=== PATIENT | male | born 1980 | race Caucasian/White ===

== ENCOUNTER 2017-03-27 10:25 | Inpatient (IN) | payer BC ==
[~2017-03-27] VITALS: Ht 167.6 cm; Wt 95.4 kg
[2017-03-27] MEDS ORDERED: NITROGLYCERIN 2% 1 GM OINT PKT TD STA (10:40)
[2017-03-27] MEDS ORDERED: ASPIRIN 81 MG TAB PO STA (10:40)
[2017-03-27] MEDS ORDERED: NITROGLYCERIN (SL) 0.4 MG TAB SL PRN ×2 (11:00→22:30)
[2017-03-27 11:11] LABS: BASOPHIL # 0.1 10^3/ul (0.0-0.1); BASOPHILS % 0.5 % (0.0-2.0); EOSINOPHILS # 0.1 10^3/ul (0.0-0.5); EOSINOPHILS % 1.4 % (0.0-7.0); HEMATOCRIT 46.7 % (42.0-52.0); HEMOGLOBIN 16.7 g/dl (14.0-18.0); LYMPHOCYTES % 32.3 % (15.0-51.0); MEAN CORPUSCULAR HEMOGLOBIN 30.7 pg (29.0-33.0); MEAN CORPUSCULAR HGB CONC 35.8 g/dl (32.0-37.0); MEAN CORPUSCULAR VOLUME 85.8 fl (82.0-101.0); MEAN PLATELET VOLUME 11.1 fl (7.4-10.4); MONOCYTE # 0.5 10^3/ul (0.3-0.9); MONOCYTES % 5.7 % (0.0-11.0); NEUTROPHIL # 5.4 10^3/ul (1.6-7.5); NEUTROPHILS % 59.6 % (39.0-77.0); PLATELET COUNT 267 10^3/UL (140-415); RED BLOOD COUNT 5.44 10^6/ul (4.70-6.10); RED CELL DISTRIBUTION WIDTH 12.4 % (11.5-14.5); WHITE BLOOD COUNT 9.1 10^3/ul (4.8-10.8)
[2017-03-27 11:29] LABS: INR 0.91; PARTIAL THROMBOPLASTIN TIME 26.7 Sec (25.0-35.0); PROTIME 12.2 Sec (12.2-14.2)
--- NOTE | 2017-03-27 11:29 | RADRPT ---
PROCEDURE: XR Chest. CLINICAL INDICATION: Chest Pain. TECHNIQUE: Single frontal view of the chest was obtained COMPARISON: None FINDINGS: The heart and mediastinum are within normal limits for patient size. The lungs are clear. There is no pleural effusion or pneumothorax. There is no evidence of significant pulmonary vascular congestion. The osseous structures, as visualized, are unremarkable. IMPRESSION: No evidence of acute cardiopulmonary process. RPTAT: PP Physician Linus Date Time Electronically viewed and signed by Physician Linus on 03/27/2017 11:28 PEPE/
[2017-03-27] MEDS ORDERED: ACETAMINOPHEN 325 MG TAB PO PRN ×2 (11:30→22:30)
[2017-03-27] MEDS ORDERED: ONDANSETRON 4 MG INJ IV PRN (11:30)
[2017-03-27 11:31] LABS: ANION GAP 20 (8-16); BLOOD UREA NITROGEN 18 mg/dl (7-20); CALCIUM 9.9 mg/dl (8.4-10.2); CARBON DIOXIDE 26 mmol/L (21-31); CHLORIDE 104 mmol/L (97-110); GLUCOSE 125 mg/dl (70-220); POTASSIUM 4.1 mmol/L (3.5-5.1); SODIUM 146 mmol/L (135-144)
[2017-03-27 11:57] LABS: TROPONIN-I < 0.012 ng/ml (0.00-0.12)
--- NOTE | 2017-03-27 12:36 | ERA ---
ER Documentation Chief Complaint Date/Time DATE: 03/27/17 TIME: 12:33 Chief Complaint 8/10 cp x yesterday HPI Patient is a 36-year-old male with hypertension who presents with chest pain and shortness of breath. The patient was sent by Dr. Marroquin his primary doctor for admission. The patient said that 2-3 weeks ago he started feeling palpitations that were coming and going. Over the past few days he has felt left-sided chest pressure. It was much worse last night and this morning. His hands were trembling. He had an EKG done yesterday done by Dr. Marroquin which was concerning for ischemia. Upon review of old medical records this is the patient's first visit to the emergency department. ROS All systems reviewed and are negative except as per history of present illness. Medications Home Meds No Active Prescriptions or Reported Meds Allergies Allergies: Coded Allergies: No Known Allergy (Unverified , 03/27/17) PMhx/Soc Medical and Surgical Hx: pt denies Medical Hx, pt denies Surgical Hx Hx Alcohol Use: Yes (SOCIALLY ONCE/MONTH) Hx Substance Use: No Hx Tobacco Use: Yes (15 CIGARETTES/DAY) Smoking Status: Current every day smoker FmHx Family History: No coronary disease Physical Exam Vitals Vital Signs Date Time Temp Pulse Resp B/P Pulse Ox O2 Delivery O2 Flow Rate FiO2 03/27/17 10:40 98.2 88 18 116/73 98 Room Air 03/27/17 10:27 98.2 98 18 134/77 98 Physical Exam Const: No acute distress Head: Atraumatic Eyes: Normal Conjunctiva ENT: Normal External Ears, Nose and Mouth. Neck: Full range of motion..~ No meningismus. Resp: Clear to auscultation bilaterally Cardio: Regular rate and rhythm, no murmurs Abd: Soft, non tender, non distended. Normal bowel sounds Skin: No petechiae or rashes Back: No midline or flank tenderness Ext: No cyanosis, or edema Neur: Awake and alert Psych: Normal Mood and Affect Result Diagram: 03/27/17 1100 03/27/17 1100 Results 24 hrs Laboratory Tests Test 03/27/17 11:00 White Blood Count 9.110^3/ul Red Blood Count 5.4410^6/ul Hemoglobin 16.7g/dl Hematocrit 46.7% Mean Corpuscular Volume 85.8fl Mean Corpuscular Hemoglobin 30.7pg Mean Corpuscular Hemoglobin Concent 35.8g/dl Red Cell Distribution Width 12.4% Platelet Count 20405^3/UL Mean Platelet Volume 11.1fl Neutrophils % 59.6% Lymphocytes % 32.3% Monocytes % 5.7% Eosinophils % 1.4% Basophils % 0.5% Nucleated Red Blood Cells % 0.0/100WBC Neutrophils # 5.410^3/ul Lymphocytes # 3.010^3/ul Monocytes # 0.510^3/ul Eosinophils # 0.110^3/ul Basophils # 0.110^3/ul Nucleated Red Blood Cells # 0.010^3/ul Prothrombin Time 12.2Sec Prothrombin Time Ratio 1.0 INR International Normalized Ratio 0.91 Activated Partial Thromboplast Time 26.7Sec Sodium Level 146mmol/L Potassium Level 4.1mmol/L Chloride Level 104mmol/L Carbon Dioxide Level 26mmol/L Anion Gap 20 Blood Urea Nitrogen 18mg/dl Creatinine 0.90mg/dl Glucose Level 125mg/dl Calcium Level 9.9mg/dl Troponin I < 0.012ng/ml Current Medications Medications (Trade) Dose Ordered Sig/Feli Route PRN Reason Start Time Stop Time Status Last Admin Dose Admin Aspirin (Aspirin) 162 mg ONCE STAT PO 03/27/17 10:40 03/27/17 10:42 DC 03/27/17 11:07 Nitroglycerin (Nitroglycerin 2% Oint) 1 inch ONCE STAT TD 03/27/17 10:40 03/27/17 10:42 DC 03/27/17 11:06 Nitroglycerin (Nitroglycerin (Sl Tab) 0.4 Mg) 1 tab Q5M UP TO 3 DOSES PRN SL CHEST PAIN 03/27/17 11:00 03/27/17 11:07 Ondansetron HCl (Zofran Inj) 4 mg ER BRIDGE PRN IV NAUSEA AND/OR VOMITING 03/27/17 11:30 03/28/17 11:29 Acetaminophen (Tylenol Tab) 650 mg ER BRIDGE PRN PO MILD PAIN/FEVER 03/27/17 11:30 03/28/17 11:29 03/27/17 11:56 Procedures/MDM EKG #1 read by me: Rate/Rhythm: Regular rate and rhythm at a rate of 97 Intervals: Normal Impression: No evidence of ischemia or arrhythmia EKG #2 read by me: Rate/Rhythm: Regular rate and rhythm at a rate of 87 Intervals: Normal Impression: No evidence of ischemia or arrhythmia Chest x-ray negative per radiology. Smoking Cessation Therapy: Pt. was lectured for greater than 3 minutes on the health risks of continued smoking and the benefits of cessation. Patient is a 36-year-old male who smokes who presents with chest pain. I am concerned about possible acute coronary syndrome given his smoking history and the symptoms he describes. I doubt pneumonia, pneumothorax, pulmonary embolism , or aortic dissection. The patient will be admitted to his primary doctor Dr. Marroquin who knows him well and sent him to the ER for admission. The patient will be admitted to a telemetry bed. He was given aspirin and nitroglycerin. Departure Diagnosis: Primary Impression: Chest pain Qualified Code: R07.9 - Chest pain, unspecified type Condition: AMIE Izquierdo MD Mar 27, 2017 12:36
[2017-03-27 16:24] LABS: CREATINE KINASE 52 IU/L (23-200)
[2017-03-27 16:38] LABS: CK-MB < 0.22 ng/ml (0.0-2.4); TROPONIN-I < 0.012 ng/ml (0.00-0.12)
[2017-03-27 17:00] VITALS: TEMP 98.4
[2017-03-27 17:50] VITALS: Ht 167.6 cm; Wt 95.4 kg
[2017-03-27 17:51] VITALS: BP 118/64; PULSE 62
[2017-03-27 20:28] VITALS: BP 109/56; PULSE 70; RESP 16
[2017-03-27 21:15] VITALS: PULSE 75
[2017-03-27 21:52] VITALS: BP 110/71; RESP 17
[2017-03-27] MEDS ORDERED: morphine 2 MG INJ IV PRN (22:30)
[2017-03-27] MEDS ORDERED: DOCUSATE SODIUM 100 MG CAP PO PRN (22:30)
[2017-03-27] MEDS ORDERED: BISACODYL (EC) 5 MG TAB PO PRN (22:30)
[2017-03-27] MEDS ORDERED: NACL 0.9% 3 ML SYG IV SCH (22:30)
--- NOTE | 2017-03-27 22:33 | HP ---
Date/Time of Note Date/Time of Note DATE: 03/27/17 TIME: 22:28 Assessment/Plan VTE Prophylaxis VTE Prophylaxis Intervention: heparin Lines/Catheters IV Catheter Type (from Nrsg): Saline Lock Assessment/Plan Chief Complaint/Hosp Course This is a 36-year-old male being admitted to the telemetry floor for: #1 chest pain: Rule out ACS versus anxiety. Patient is an obese male and has been a smoker for approximately 30 years. He does live a sedentary lifestyle. At the current time we will continue to trend cardiac troponins first 2 sets are negative. EKG was normal sinus rhythm as per the ED physician documentation. We will order echocardiogram in the a.m. Will also obtain a cardiology consult. Patient also reports stress in his life over the last month or so. This likely could be a component as well however we will rule out cardiac causes prior to that. X-ray of the chest was within normal values. #2 obesity: Patient was educated on weight loss. Will also obtain hemoglobin A1c and lipid panel as well as a TSH level. Patient also reports that he does feel tired throughout the day and he reports snoring. He may have underlying sleep apnea. Likely will need outpatient sleep study. #3 DVT and GI prophylaxis: Heparin subq, Protonix Further treatment strategy will be implemented as per the clinical course Of Note, The patient was admitted under Dr. Marroquin however as per the patient 's nurse, Dr. Marroquin wanted the patient transferred to the hospitalist service. I assumed care at around 10:31pm on 03/27/17. I attempted twice to contact Dr. Marroquin to clarify the transfer of care, but was unable to reach him through the answering service. Problems: HPI/ROS Admit Date/Time Admit Date/Time Mar 27, 2017 at 11:17 Hx of Present Illness chief complaint: chest pain This is a 36-year-old male with hypertension who presents with chest pain and shortness of breath. Follow was obtained by ED physician documentation. The patient was sent by Dr. Marroquin his primary doctor for admission. The patient said that 2-3 weeks ago he started feeling palpitations that were coming and going. Over the past few days he has felt left-sided chest pressure. It was much worse last night and this morning. His hands were trembling. He had an EKG done yesterday done by Dr. Marroquin which was concerning for ischemia. Upon my examination, patient was lying in bed in no acute distress. He did state that he has this pressure-like sensation on the left side of his chest which has been there since coming into the hospital. He denies any radiation of the pressure. He does report that he has been dealing with a lot of stress at work over the past month or so. Denies any diaphoresis or pleuritic pain. Of Note, The patient was admitted under Dr. Marroquin however as per the patient 's nurse, Dr. Marroquin wanted the patient transferred to the hospitalist service. I assumed care at around 10:31pm on 03/27/17. I attempted twice to contact Dr. Marroquin to clarify the transfer of care, but was unable to reach him through the answering service. ROS Const: As per HPI Eyes : No pain discharge or redness or change in visual acuity ENT: No pain, sore throat, congestion, congestion, dysphagia or discharge, patient does report snoring. Respiratory: As per HPI Cardiovascular: As per HPI GI : no change in appetite, abdominal pain, nausea, vomiting, diarrhea, constipation, or change in the color his stool Genitourinary: No dysuria, hematuria, flank pain , discharge or CVA tenderness Musculoskeletal: No joint pain, back pain, neck pain, restricted range of motion in neck or joints Skin: No rash, bruising or hives Neuro: No headache, dizziness, syncope, seizure, focal weakness Endocrine: No polyuria, polydipsia, temperature intolerance Psych: No hallucination, depression, anxiety or suicidal ideation PMH/Family/Social Past Medical History Medical History: no pertinent history Past Surgical History Past Surgical Hx: cholecystectomy Family History Significant Family History: no pertinent family hx Social History Alcohol Use: rarely (Social drinker) Smoking Status: Current every day smoker (1 pack per day 20 years) Exam/Review of Systems Vital Signs Vitals Vital Signs Date Time Temp Pulse Resp B/P Pulse Ox O2 Delivery O2 Flow Rate FiO2 03/27/17 21:52 98.0 75 17 110/71 97 03/27/17 20:28 Room Air Exam Exam General: Patient is a well-developed well-nourished male lying in bed in no acute distress. HEENT: Atraumatic, normocephalic. The pupils are equal, round and reactive. Extraocular motor are intact, Neck: Supple with full range of motion. No rigidity or meningismus, large neck Chest: Nontender Lungs: Clear to auscultation bilaterally no crackles rales or wheezing Heart: Normal S1-S2, Regular rhythm and rate. No overt murmurs appreciated on auscultation Abdomen: Soft , nontender, nondistended , bowel sounds are present. No guarding no rebound tenderness , No masses or organomegaly. No costovertebral temporal angle mass Extremities: Normal to inspection, no edema no cyanosis Neurologic: Normal mental status, speech normal, cranial nerves II through XII are intact, motor and sensory are intact, no focal weakness Additional Comments PROCEDURE: XR Chest. CLINICAL INDICATION: Chest Pain. TECHNIQUE: Single frontal view of the chest was obtained COMPARISON: None FINDINGS: The heart and mediastinum are within normal limits for patient size. The lungs are clear. There is no pleural effusion or pneumothorax. There is no evidence of significant pulmonary vascular congestion. The osseous structures, as visualized, are unremarkable. IMPRESSION: No evidence of acute cardiopulmonary process. RPTAT: PP Physician Linus Date Time Electronically viewed and signed by Physician Linus on 03/27/2017 11: 28 EKG #1 Rate/Rhythm: Regular rate and rhythm at a rate of 97 Intervals: Normal Impression: No evidence of ischemia or arrhythmia EKG #2 Rate/Rhythm: Regular rate and rhythm at a rate of 87 Intervals: Normal Impression: No evidence of ischemia or arrhythmia as per ed physician documentation Labs Result Diagram: 03/27/17 1100 03/27/17 1100 KATHYA DOMÍNGUEZ Mar 27, 2017 22:33
[2017-03-27 23:11] LABS: CREATINE KINASE 48 IU/L (23-200)
[2017-03-27 23:34] VITALS: BP 110/61; RESP 17
[2017-03-28] VITALS (13 sets, daily range): BP systolic 112–118; BP diastolic 60–77; PULSE 60–81; RESP 15–20
[2017-03-28 01:29] LABS: CK-MB < 0.22 ng/ml (0.0-2.4); TROPONIN-I < 0.012 ng/ml (0.00-0.12)
[2017-03-28] MEDS ORDERED: PANTOPRAZOLE 40 MG INJ IV SCH (06:00)
[2017-03-28] MEDS: HEPARIN 5,000 UNIT/0.5 ML VIAL SC SCH ×2 (06:39→14:27)
[2017-03-28 07:17] LABS: BASOPHIL # 0.1 10^3/ul (0.0-0.1); BASOPHILS % 0.6 % (0.0-2.0); EOSINOPHILS # 0.1 10^3/ul (0.0-0.5); EOSINOPHILS % 1.6 % (0.0-7.0); HEMATOCRIT 44.2 % (42.0-52.0); HEMOGLOBIN 15.8 g/dl (14.0-18.0); LYMPHOCYTES % 33.8 % (15.0-51.0); MEAN CORPUSCULAR HEMOGLOBIN 30.9 pg (29.0-33.0); MEAN CORPUSCULAR HGB CONC 35.7 g/dl (32.0-37.0); MEAN CORPUSCULAR VOLUME 86.5 fl (82.0-101.0); MEAN PLATELET VOLUME 11.2 fl (7.4-10.4); MONOCYTE # 0.6 10^3/ul (0.3-0.9); MONOCYTES % 6.9 % (0.0-11.0); NEUTROPHILS % 56.4 % (39.0-77.0); PLATELET COUNT 249 10^3/UL (140-415); RED BLOOD COUNT 5.11 10^6/ul (4.70-6.10); RED CELL DISTRIBUTION WIDTH 12.5 % (11.5-14.5); WHITE BLOOD COUNT 8.8 10^3/ul (4.8-10.8)
[2017-03-28 07:40] LABS: ALBUMIN 4.3 g/dl (3.3-4.9); ALBUMIN/GLOBULIN RATIO 1.72; BILIRUBIN,INDIRECT 0.4 mg/dl (0-1.1); BILIRUBIN,TOTAL 0.4 mg/dl (0.2-1.3); CALCIUM 9.8 mg/dl (8.4-10.2); CHOL/HDL RATIO 4.8 RATIO; CREATININE 0.94 mg/dl (0.61-1.24); MAGNESIUM 1.9 mg/dl (1.7-2.5); POTASSIUM 4.4 mmol/L (3.5-5.1); TOTAL PROTEIN 6.8 g/dl (6.1-8.1)
[2017-03-28 08:02] LABS: THYROID STIMULATING HORMONE 0.969 MIU/L (0.465-4.680)
[2017-03-28] MEDS ORDERED: NICOTINE (14 MG/24 HR) PATCH TRANSDERM SCH (09:00)
--- NOTE | 2017-03-28 10:55 | PN ---
Date/Time of Note Date/Time of Note DATE: 03/28/17 TIME: 10:51 Assessment/Plan VTE Prophylaxis VTE Prophylaxis Intervention: heparin Lines/Catheters IV Catheter Type (from Nrs): Saline Lock Assessment/Plan Chief Complaint/Hosp Course Assessment and plan: 36-year-old male being admitted to the telemetry floor for: #1 chest pain: Rule out ACS versus anxiety. Patient is an obese male and has been a smoker for approximately 30 years. He does live a sedentary lifestyle. EKG was normal sinus rhythm as per the ED physician documentation. Patient also reports stress in his life over the last month or so. This likely could be a component as well however we will rule out cardiac causes prior to that. X -ray of the chest was within normal values. - At the current time we will continue to trend cardiac troponins first 2 sets are negative. -Follow-up echocardiogram in the a.m, and cardiology consult rec's. #2 obesity: Patient was educated on weight loss.Patient also reports that he does feel tired throughout the day and he reports snoring. He may have underlying sleep apnea. -Follow-up hemoglobin A1c and lipid panel as well as a TSH level. -May need outpatient sleep study. #3 DVT and GI prophylaxis: Heparin subq, Protonix Further treatment strategy will be implemented as per the clinical course Of Note, The patient was admitted under Dr. Marroquin however as per the patient 's nurse, Dr. Marroquin wanted the patient transferred to the hospitalist service. I assumed care at around 10:31pm on 03/27/17. Night attempted twice to contact Dr. Marroquin to clarify the transfer of care, but was unable to reach him through the answering service. Problems: Subjective 24 Hr Interval Summary Free Text/Dictation Patient with less chest pain, but does complain of some left arm numbness. Awaiting to be seen by cardiology team. Exam/Review of Systems Vital Signs Vitals Vital Signs Date Time Temp Pulse Resp B/P Pulse Ox O2 Delivery O2 Flow Rate FiO2 03/28/17 08:06 63 03/28/17 07:49 98.0 17 114/61 99 03/27/17 20:28 Room Air Intake and Output 03/27/17 03/27/17 03/28/17 15:00 23:00 07:00 Intake Total 60 ml Balance 60 ml Exam General: Patient is a well-developed well-nourished male lying in bed in no acute distress. HEENT: Atraumatic, normocephalic. The pupils are equal, round and reactive. Extraocular motor are intact, Neck: Supple with full range of motion. No rigidity or meningismus, large neck Chest: Nontender Lungs: Clear to auscultation bilaterally no crackles rales or wheezing Heart: Normal S1-S2, Regular rhythm and rate. No overt murmurs appreciated on auscultation Abdomen: Soft , nontender, nondistended , bowel sounds are present. No guarding no rebound tenderness , No masses or organomegaly. No costovertebral temporal angle mass Extremities: Normal to inspection, no edema no cyanosis Neurologic: Normal mental status, speech normal, cranial nerves II through XII are intact, motor and sensory are intact, no focal weakness Results Result Diagram: 03/28/17 0625 03/28/1725 Results 24 hrs Laboratory Tests Test 03/27/17 11:00 03/27/17 16:00 03/27/17 22:40 03/28/17 06:25 White Blood Count 9.1 8.8 Red Blood Count 5.44 5.11 Hemoglobin 16.7 15.8 Hematocrit 46.7 44.2 Mean Corpuscular Volume 85.8 86.5 Mean Corpuscular Hemoglobin 30.7 30.9 Mean Corpuscular Hemoglobin Concent 35.8 35.7 Red Cell Distribution Width 12.4 12.5 Platelet Count 267 249 Mean Platelet Volume 11.1 H 11.2 H Neutrophils % 59.6 56.4 Lymphocytes % 32.3 33.8 Monocytes % 5.7 6.9 Eosinophils % 1.4 1.6 Basophils % 0.5 0.6 Nucleated Red Blood Cells % 0.0 0.0 Neutrophils # 5.4 5.0 Lymphocytes # 3.0 H 3.0 H Monocytes # 0.5 0.6 Eosinophils # 0.1 0.1 Basophils # 0.1 0.1 Nucleated Red Blood Cells # 0.0 0.0 Prothrombin Time 12.2 Prothrombin Time Ratio 1.0 INR International Normalized Ratio 0.91 Activated Partial Thromboplast Time 26.7 Sodium Level 146 H 143 Potassium Level 4.1 4.4 Chloride Level 104 101 Carbon Dioxide Level 26 27 Anion Gap 20 H 19 H Blood Urea Nitrogen 18 16 Creatinine 0.90 0.94 Glucose Level 125 97 Calcium Level 9.9 9.8 Troponin I < 0.012 < 0.012 < 0.012 Creatine Kinase 52 48 Creatine Kinase Index 0.4 0.5 Creatinine Kinase MB (Mass) < 0.22 < 0.22 Hemoglobin A1c 4.9 Magnesium Level 1.9 Total Bilirubin 0.4 Direct Bilirubin 0.00 Indirect Bilirubin 0.4 Aspartate Amino Transf (AST/SGOT) 31 Alanine Aminotransferase (ALT/SGPT) 58 Alkaline Phosphatase 53 Total Protein 6.8 Albumin 4.3 Globulin 2.50 Albumin/Globulin Ratio 1.72 Triglycerides Level 232 H Cholesterol Level 156 LDL Cholesterol, Calculated 78 HDL Cholesterol 32 Cholesterol/HDL Ratio 4.8 Thyroid Stimulating Hormone (TSH) 0.969 Medications Medications Current Medications Nitroglycerin (Nitroglycerin (Sl Tab) 0.4 Mg) 1 tab Q5M PRN SL CHEST PAIN; Start 03/27/17 at 22:30 Acetaminophen (Tylenol Tab) 650 mg Q6H PRN PO PAIN LEVEL 1-3 OR FEVER; Start at 22:30 Morphine Sulfate (morphine) 2 mg Q4H PRN IV PAIN LEVEL 7-10; Start 03/27/17 at 22:30 Docusate Sodium (Colace) 100 mg Q12H PRN PO CONSTIPATION; Start 03/27/17 at 22: 30 Bisacodyl (Dulcolax) 5 mg DAILY PRN PO CONSTIPATION; Start 03/27/17 at 22:30 Pantoprazole (Protonix Iv) 40 mg DAILY@06 IV Last administered on 03/28/17 06: 30; Admin Dose 40 MG; Start 03/28/17 at 06:00 Heparin Sodium (Porcine) (Heparin (5000 Units/0.5 ml)) 5,000 unit Q8 SC Last administered on 03/28/17 06:39; Admin Dose 5,000 UNIT; Start 03/28/17 at 06:00 Nicotine (Nicoderm 14 Mg/ 24hr) 1 patch DAILY TRANSDERM Last administered on 09:21; Admin Dose 1 PATCH; Start 03/28/17 at 09:00 CIERA CARBAJAL Mar 28, 2017 10:55
--- NOTE | 2017-03-28 17:12 | RADRPT ---
Echocardiogram Report Patient Name: BILLY CANTU Gender: Male Date: 1980 Study Date: 28-Mar-2017 Educational Sign Language Interpreter: Sulaiman [facility] Location: [id number] Ref. Physician: KATHYA DOMÍNGUEZ Quality: Adequate Procedures: Transthoracic echocardiogram with complete 2D, M-Mode, and doppler examination. Indications: Chest Pain. 2D/M Mode Doppler Measurement Value Normal Ranges Measurement Value Normal Ranges LVIDd 2D 4.6 3.5 - 5.6 cm AV Peak Arben 1.1 m/sec LVIDs 2D 3.3 2.1 - 4.1 cm AV Peak PG 5.0 mmHg FS 2D 28.4 % LVOT Peak Arben 0.8 m/sec LVPWd 2D 0.9 0.6 - 1.1 cm LVOT Peak PG 3.0 mmHg IVSd 2D 0.9 0.6 - 1.1 cm MV E Peak Arben 0.9 m/sec IVS/LVPW 2D 1.1 MV A Peak Arben 0.7 m/sec AoR Diam 2D 2.3 2.0 - 3.7 cm MV E/A 1.3 LA/Ao 2D 1 0 - 1 MV Decel Time 194 msec EDV 2D 98.6 cm3 MV E/A 1.3 ESV 2D 36.3 cm3 LA Dimen 2D 3.2 2.3 - 4.0 cm Findings Left Ventricle: Normal left ventricular systolic function. Normal left ventricular cavity size. Normal left ventricular wall thickness. Ejection fraction is visually estimated at 60 %. Tissue Doppler/Mitral Doppler indices are within normal limits. Right Ventricle: Normal right ventricular size. Normal right ventricular systolic function. Left Atrium: The left atrium is normal in size. Right Atrium: The right atrium is normal in size. Mitral Valve: Mild mitral leaflet calcification. Mild mitral annular calcification. Trace mitral regurgitation. Aortic Valve: Normal appearance of the aortic valve. No significant aortic stenosis or insufficiency. Tricuspid Valve: Normal appearance of the tricuspid valve. Unable to obtain RVSP due to minimal presence of tricuspid regurgitation. There is trace tricuspid regurgitation. Pulmonic Valve: Pulmonic valve not well visualized. There is trace pulmonic regurgitation. Pericardium: Normal pericardium with no significant pericardial effusion. Aorta: Normal aortic root. IVC: Normal size and poor respiratory collapse consistent with elevated right atrial pressure. Conclusions 1.Normal left ventricular systolic function. Normal left ventricular cavity size. Normal left ventricular wall thickness. Ejection fraction is visually estimated at 60 %. Tissue Doppler/Mitral Doppler indices are within normal limits. 2.Normal right ventricular size. Normal right ventricular systolic function. 3.The left atrium is normal in size. 4.The right atrium is normal in size. 5.No significant valvular stenosis or regurgitation seen. 6.Normal pericardium with no significant pericardial effusion. Electronically Signed By: Peter Leiva 28-Mar-2017 17:11:25 -0700 Patient Name: BILLY CANTU Study Date: 28-Mar-2017 [id number]
--- NOTE | 2017-03-28 18:09 | CONS ---
Date/Time of Note Date/Time of Note DATE: 03/28/17 TIME: 18:05 Assessment/Plan Assessment/Plan Additional Assessment/Plan Chest pain Preserved ejection fraction Tobacco use -Patient with symptoms of chest discomfort going on for weeks and chronic. No change with activity or exertion and reproducible with palpation. Serial cardiac enzymes have remained negative, ECG without any significant ischemic abnormalities, echocardiogram within normal limits. Given atypical symptoms and negative workup as mentioned above, no further inpatient cardiac workup needed at the current time. Smoking cessation recommended. Consultation Date/Type/Reason Admit Date/Time Mar 27, 2017 at 11:17 Type of Consultation: cv Reason for Consultation Chest pain Hx of Present Illness This is a 36-year-old male with past medical history of tobacco use who presents with chest discomfort. Patient has been having symptoms on and off going on for the past 2-4 weeks. Chest discomfort is sharp-like pain he he points to his mid chest on the left side. Activity does not improve or worsen his symptoms. His chest discomfort has become more constant throughout the day and worsening over the past few days. No associated shortness of breath or diaphoresis. Because of the worsening symptoms, he became concerned and came to the emergency room for further evaluation and care. Denies any dizziness or lightheadedness. Denies any shortness of breath. Denies any fevers or chills. 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 Exam/Review of Systems Vital Signs Vitals Vital Signs Date Time Temp Pulse Resp B/P Pulse Ox O2 Delivery O2 Flow Rate FiO2 03/28/17 17:35 98.1 63 20 118/72 98 Room Air Intake and Output 03/27/17 03/27/17 03/28/17 15:00 23:00 07:00 Intake Total 60 ml Balance 60 ml Exam No apparent distress Constitutional: alert, oriented, well developed Head: normocephalic Neck: supple Respiratory: clear to auscultation, normal air movement Cardiovascular: other (S1-S2 heard, no murmurs appreciated), regular rate and rhythm Gastrointestinal: bowel sounds, non-tender, other (No guarding), soft Musculoskeletal: other (Chest discomfort with palpation of chest wall) Extremities: other (No edema) Results Result Diagram: 03/28/1762403/28/17624 Results 24 hrs Laboratory Tests Test 03/27/17 22:40 03/28/17 06:25 Creatine Kinase 48 Creatine Kinase Index 0.5 Creatinine Kinase MB (Mass) < 0.22 Troponin I < 0.012 White Blood Count 8.8 Red Blood Count 5.11 Hemoglobin 15.8 Hematocrit 44.2 Mean Corpuscular Volume 86.5 Mean Corpuscular Hemoglobin 30.9 Mean Corpuscular Hemoglobin Concent 35.7 Red Cell Distribution Width 12.5 Platelet Count 249 Mean Platelet Volume 11.2 H Neutrophils % 56.4 Lymphocytes % 33.8 Monocytes % 6.9 Eosinophils % 1.6 Basophils % 0.6 Nucleated Red Blood Cells % 0.0 Neutrophils # 5.0 Lymphocytes # 3.0 H Monocytes # 0.6 Eosinophils # 0.1 Basophils # 0.1 Nucleated Red Blood Cells # 0.0 Sodium Level 143 Potassium Level 4.4 Chloride Level 101 Carbon Dioxide Level 27 Anion Gap 19 H Blood Urea Nitrogen 16 Creatinine 0.94 Glucose Level 97 Hemoglobin A1c 4.9 Calcium Level 9.8 Magnesium Level 1.9 Total Bilirubin 0.4 Direct Bilirubin 0.00 Indirect Bilirubin 0.4 Aspartate Amino Transf (AST/SGOT) 31 Alanine Aminotransferase (ALT/SGPT) 58 Alkaline Phosphatase 53 Total Protein 6.8 Albumin 4.3 Globulin 2.50 Albumin/Globulin Ratio 1.72 Triglycerides Level 232 H Cholesterol Level 156 LDL Cholesterol, Calculated 78 HDL Cholesterol 32 Cholesterol/HDL Ratio 4.8 Thyroid Stimulating Hormone (TSH) 0.969 Medications Medications Current Medications Nitroglycerin (Nitroglycerin (Sl Tab) 0.4 Mg) 1 tab Q5M PRN SL CHEST PAIN; Start 03/27/17 at 22:30 Acetaminophen (Tylenol Tab) 650 mg Q6H PRN PO PAIN LEVEL 1-3 OR FEVER; Start at 22:30 Morphine Sulfate (morphine) 2 mg Q4H PRN IV PAIN LEVEL 7-10; Start 03/27/17 at 22:30 Docusate Sodium (Colace) 100 mg Q12H PRN PO CONSTIPATION; Start 03/27/17 at 22: 30 Bisacodyl (Dulcolax) 5 mg DAILY PRN PO CONSTIPATION; Start 03/27/17 at 22:30 Pantoprazole (Protonix Iv) 40 mg DAILY@06 IV Last administered on 03/28/17 06: 30; Admin Dose 40 MG; Start 03/28/17 at 06:00 Heparin Sodium (Porcine) (Heparin (5000 Units/0.5 ml)) 5,000 unit Q8 SC Last administered on 03/28/17 14:27; Admin Dose 5,000 UNIT; Start 03/28/17 at 06:00 Nicotine (Nicoderm 14 Mg/ 24hr) 1 patch DAILY TRANSDERM Last administered on 09:21; Admin Dose 1 PATCH; Start 03/28/17 at 09:00 Procedures Procedures ECG done yesterday demonstrates sinus rhythm at 87 bpm, QRS 84 ms, no significant ischemic STT wave abnormalities Peter Leiva DO Mar 28, 2017 18:09
== END 2017-03-28 20:45 | disposition left against medical advice (07) | DRG 313 ==
LOC: E/R 10:25 → MS3 11:17 → MS4 21:10
PROVIDERS: ADMIT Family Medicine; ATTEND Family Medicine
DX: R07.89 Other chest pain (principal); I10 Essential (primary) hypertension; F17.200 Nicotine dependence, unspecified, uncomplicated; Z53.21 Procedure and treatment not carried out due to patient leaving prior to being seen by health care provider; E66.9 Obesity, unspecified; Z68.33 Body mass index [BMI] 33.0-33.9, adult
CPT/HCPCS: 36415; 71010; 80048; 80053; 80061; 82550; 82553; 83036; 83735; 84443; 84484; 85025; 85610; 85730; 93005; 93306; C9113; J1644; J2405

== ENCOUNTER 2017-05-11 11:17 | Emergency (ER) | payer BC ==
[~2017-05-11] VITALS: Ht 172.7 cm; Wt 89.0 kg
[2017-05-11 11:50] VITALS: Ht 172.7 cm; Wt 89.0 kg
[2017-05-11] MEDS ORDERED: DIPHTH/TET/ACEL PERTUSS (ADULT) 0.5 ML VIAL IM* ONE (12:30)
--- NOTE | 2017-05-11 13:44 | RADRPT ---
PROCEDURE: CT Brain without contrast. CLINICAL INDICATION: Headache, trauma TECHNIQUE: A CT of the brain was performed on a [employer] 64-slice CT scanner utilizing axial imaging from the skull base through the vertex without IV contrast. Multiplanar reformatted images were made. Images were reviewed on a PACS workstation. The CTDIvol is 44.77 mGy and the DLP is 72 0.23 mGycm. One or more of the following dose reduction techniques were used: automated exposure co ntrol, adjustment of the mA and/or kV according to patient size, or use of iterative reconstruction technique. COMPARISON: None FINDINGS: Mild right frontal scalp soft tissue swelling. There is no intracranial hemorrhage, mass effect, or midline shift. No extra-axial fluid collection is seen. The ventricles and sulci are normal in size and configuration. The density of the brain is normal, and the craig white matter differentiation ap pears well-preserved. The brainstem and posterior fossa are normal. There is mucosal thickening in t he left maxillary sinus. The calvarium is normal. IMPRESSION: 1. No evidence of acute intracranial pathology. RPTAT: HCNS Physician Marvin Date Time Electronically viewed and signed by Physician Marvin on 05/11/2017 13:43 KOLBY/
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
[2017-05-11 14:30] VITALS: BP 128/76; PULSE 70; RESP 16; TEMP 98
== END 2017-05-11 14:30 | disposition home or self-care (01) ==
LOC: FTE 11:17
DX: R51 Headache (principal); F17.210 Nicotine dependence, cigarettes, uncomplicated; Z23 Encounter for immunization
CPT/HCPCS: 70450; 90471; 90715; Z7502

== ENCOUNTER 2018-01-30 20:04 | Emergency (ER) | END 2018-01-30 22:22 | disposition home or self-care (01) ==